=== PATIENT | female | born 1985 | race Caucasian/White ===

== ENCOUNTER 2018-03-05 17:38 | Emergency (ER) | payer OTHER ==
[~2018-03-05] VITALS: Ht 177.8 cm; Wt 78.5 kg
[2018-03-05 18:15] LABS: BILIRUBIN,URINE NEGATIVE (NEGATIVE); CLARITY,URINE SL CLOUDY (CLEAR); COLOR,URINE YELLOW (YELLOW); KETONES,URINE NEGATIVE (NEGATIVE); LEUKOCYTE ESTERASE ,URINE 1+ (NEGATIVE); NITRITE,URINE NEGATIVE (NEGATIVE); PROTEIN,URINE DIPSTICK NEGATIVE (NEGATIVE); URINE UROBILINOGEN 0.2 mg/dL (0.2 - 1)
[2018-03-05 18:18] LABS: BASOPHILS % 0.3 % (0.0-1.0); EOSINOPHILS % 0.4 % (0.0-6.0); HEMATOCRIT 39.2 % (34.2-44.1); HEMOGLOBIN 13.3 g/dL (12.0-16.0); LYMPHOCYTES # (AUTO) 3.1 (1.0-3.2); LYMPHOCYTES % 32.2 % (18.0-39.1); MEAN CORPUSCULAR HEMOGLOBIN 28.9 pg (28-32); MEAN CORPUSCULAR HGB CONC 33.9 g/dL (31-35); MONOCYTES # (AUTO) 0.7 (0.2-0.8); MONOCYTES % 7.2 % (4.4-11.3); NEUTROPHILS # (AUTO) 5.8 (2.1-6.9); NEUTROPHILS % 59.6 % (38.7-80.0); PLATELET COUNT 298 x10e3/uL (140-360); RED BLOOD COUNT 4.61 x10e6/uL (3.6-5.1); RED CELL DISTRIBUTION WIDTH 12.5 % (11.7-14.4)
[2018-03-05 18:26] LABS: BACTERIA,URINE MANY /HPF; EPITHELIAL CELLS,URINE MODERATE /LPF; TRANSITIONAL EPI CELLS,URINE FEW
[2018-03-05 18:36] LABS: ALANINE AMINOTRANSFERASE 10 IU/L (0-55); ALBUMIN/GLOBULIN RATIO 1.2 (0.8-2.0); ALKALINE PHOSPHATASE 53 IU/L (40-150); ANION GAP 9.7 mmol/L (8-16); BLOOD UREA NITROGEN 15 mg/dL (7-26); BUN/CREATININE RATIO 17 (6-25); CALCIUM 9.2 mg/dL (8.4-10.2); CARBON DIOXIDE 26 mmol/L (22-29); CHLORIDE 107 mmol/L (98-107); CREATININE, SERUM 0.89 mg/dL (0.57-1.11); EST GLOMERULAR FILTRATION RATE > 60 ML/MIN (60-); GLUCOSE 68 mg/dL (74-118); POTASSIUM 3.7 mmol/L (3.5-5.1); SODIUM 139 mmol/L (136-145)
[2018-03-05 18:41] LABS: HCG,QUANTITATIVE 591.03 mIU/mL (0-10)
[2018-03-05] MEDS ORDERED: CEFTRIAXONE SOD 1 GM VIAL IV ONE (18:45)
[2018-03-05 20:16] VITALS: BP 113/70
[2018-03-05] MEDS ORDERED: ZOFRAN ODT4 MG SL (20:16)
[2018-03-05] MEDS ORDERED: MACROBID 100 M100 MG PO (20:16)
--- NOTE | 2018-03-05 20:53 | Diagnostic Imaging Report ---
EXAM: Obstetric Pelvic Ultrasound INDICATION: well-being and ovary flow, ectopic COMPARISON: None TECHNIQUE: Transabdominal and transvaginal evaluation of the pelvis was performed in the transverse and longitudinal planes. CLINICAL HISTORY: 32 year old A0 MC1; last menstrual period: 01/25/2018 FINDINGS: Uterus: Orientation: Retroverted Size: 6.8 x 4.7 x 6.3 cm, enlarged Mass: None Cervix: Normal Endometrium: 2.1 cm in thickness, irregular, hypervascular Gestational Sac: Not visualized Yolk sac: Not visualized Embryo/Fetus: Not visualized Right ovary Size: 2.4 x 1.8 x 2.5 cm Mass/Cyst: None Left ovary Size: 3.9 x 2.1 x 3.3 cm Mass/Cyst: None Cul-de-sac: No free fluid IMPRESSION: 1. No evidence of intrauterine or ectopic . 2. Thickening an irregular endometrial lining. Continue follow-up with serial beta-hCG and pelvic ultrasound is recommended Signed by: Dr. Tj Laura M.D. on 03/05/2018 8:50 PM
== END 2018-03-05 20:22 | disposition home or self-care (01) ==
LOC: ER 17:38
DX: O20.9 Hemorrhage in early pregnancy, unspecified (principal); O20.0 Threatened abortion; O23.41 Unspecified infection of urinary tract in pregnancy, first trimester
CPT/HCPCS: 36415; 76801; 76830; 80053; 81001; 84702; 85025; 87086; 96374; 99284; J0696

== ENCOUNTER 2018-08-03 12:57 | Emergency (ER) | payer OTHER ==
[~2018-08-03 12:57] MED LIST: MACROBID 100 M100 MG PO; ZOFRAN ODT4 MG SL
--- OUTSIDE RECORDS SUMMARY | 2018-08-03 13:00 | XMS REPORT ---
Author [facility] Address Unknown Phone Unavailable Care Team Providers Care Datastage Consultant Name Role Phone Macy KWOK Unavailable Unavailable Problems This patient has no known problems. Allergies, Adverse Reactions, Alerts This patient has no known allergies or adverse reactions. Medications This patient has no known medications. Results Test Description Test Time Test Comments Text Results Atomic Results Result Comments US OB 1st TRIM SINGLE GEST 2018-03-05 20:47:00 [place] [id number] Patient Name: KISHA BLACKWELL MR #: [id number] : 1985 Age/Sex: 32/F Req #: [id number] Adm Physician: Ordered by: HUANG CARSON MASH PREPARATORY OPERATOR Report #: [id number] Location: ER Room/Bed: Procedure: [id number] US/US OB 1st TRIM SINGLE GEST Exam Date: Exam Time: REPORT STATUS: Signed EXAM: Obstetric Pelvic Ultrasound INDICATION: well-being and ovary flow, ectopic COMPARISON: None TECHNIQUE: Transabdominal and transvaginal evaluation of the pelvis was performed in the transverse and longitudinal plan es. CLINICAL HISTORY: 32 year old A0 MC1; last menstrual period: 01/25/2018 FINDINGS: Uterus: Orientation: Retroverted Size: 6.8 x 4.7 x 6.3 cm, enlarged Mass: None Cervix: Normal Endometrium: 2.1 cm in thickness, irregular, hypervascular Gestational Sac: Not visualized Yolk sac: Not visualized Embryo/Fetus: Not visualized Right ovary Size: 2.4 x 1.8 x 2.5 cm Mass/Cyst: None Left ovary Size: 3.9 x 2.1 x 3.3 cm Mass/Cyst: None Cul-de-sac: No free fluid IMPRESSION: 1. No evidence of intrauterine or ectopic . 2. Thickening an irregular endometrial lining. Continue follow-up with serial beta-hCG and pelvic ultrasound is recommended Signed by: Dr. Tj Laura M.D. on 03/05/2018 8:50 PM Dictated By: TJ VÁZQUEZ MD 49 Transcribed By: EYAD on 03/05/182049 COPY TO: HUANG CARSON NP US TRANSVAGINAL 2018-03-05 20:47:00 [place] [address] Patient Name: KISHA BLACKWELL MR #: [id number] : 1985 Age/Sex: 32/F Req #: [id number] Adm Physician: Ordered by: HUANG CARSON MASH PREPARATORY OPERATOR Report #: [id number] Location: ER Room/Bed: Procedure: [id number] US/US TRANSVAGINAL Exam Date: 03/05/18 Exam Time: 1934 REPORT STATUS: Signed EXAM: Obstetric Pelvic Ultrasound INDICATION: well-being and ovary flow, ectopic COMPARISON: None TECHNIQUE: Transabdominal and transvaginal evaluation of the pelvis was performed in the transverse and longitudinal planes. CLINICAL HISTORY: 32 year old A0 MC1; last menstrual period: 01/25/2018 FINDINGS: Uterus: Orientation: Retroverted Size: 6.8 x 4.7 x 6.3 cm, enlarged Mass: None Cervix: Normal Endometrium: 2.1 cm in thickness, irregular, hypervascular Gestational Sac: Not visualized Yolk sac: Not visualized Embryo/Fetus: Not visualized Right ovary Size: 2.4 x 1.8 x 2.5 cm Mass/Cyst: None Left ovary Size: 3.9 x 2.1 x 3.3 cm Mass/Cyst: None Cul-de-sac: No free fluid IMPRESSION: 1. No evidence of intrauterine or ectopic . 2. Thickening an irregular endometrial lining. Continue follow-up with serial beta-hCG and pelvic ultrasound is recommended Signed by: Dr. Tj Laura M.D. on 03/05/2018 8:50 PM Dictated By: TJ VÁZQUEZ MD 1501 Transcribed By: EYAD on 03/16/18 1501 COPY TO: HUANG CARSON NP
== END 2018-08-03 13:30 | disposition short-term general hospital (02) ==
LOC: ER 12:57
DX: R51 Headache (principal)

== ENCOUNTER 2023-02-02 12:00 | Emergency (ER) | payer OTHER ==
[~2023-02-02] VITALS: Ht 177.8 cm; Wt 84.4 kg
[2023-02-02 12:44] VITALS: O2SAT 100
[2023-02-02 13:43] LABS: COLOR,URINE YELLOW (YELLOW)
[2023-02-02 13:44] LABS: CLARITY,URINE CLEAR (CLEAR)
[2023-02-02 13:45] LABS: KETONES,URINE NEGATIVE (NEGATIVE); LEUKOCYTE ESTERASE ,URINE TRACE (NEGATIVE); NITRITE,URINE NEGATIVE (NEGATIVE); PROTEIN,URINE DIPSTICK NEGATIVE (NEGATIVE); URINE UROBILINOGEN 0.2 mg/dL (0.2 - 1)
[2023-02-02 13:52] LABS: BACTERIA,URINE FEW /HPF; EPITHELIAL CELLS,URINE MODERATE /LPF
[2023-02-02] MEDS ORDERED: CEFDINIR300 MG PO (14:08)
[2023-02-02] MEDS ORDERED: METHOCARBAMOL750 MG PO (14:08)
[2023-02-02] MEDS ORDERED: KETOROLAC TROME10 MG PO (14:08)
== END 2023-02-02 15:57 | disposition home or self-care (01) ==
LOC: ER 12:06
DX: M54.50 Low back pain, unspecified (principal); N39.0 Urinary tract infection, site not specified
CPT/HCPCS: 81001; 81025; 99284